=== PATIENT | male | born 1985 | race Caucasian/White ===

== ENCOUNTER 2016-07-28 12:56 | Outpatient (CLI) ==
[2016-05-09 17:54] VITALS: BMI 21.4
[2016-07-28 13:19] LABS: BASOPHILS % (AUTO) 0.6 % (0.0-3.0); EOSINOPHILS # (AUTO) 0.2 K/ul (0.0-0.7); EOSINOPHILS % (AUTO) 2.7 % (0.0-7.0); HEMATOCRIT 44.1 % (42.0-52.0); HEMOGLOBIN 14.9 g/dl (14.0-18.0); IMMATURE GRANULOCYTE % (AUTO) 0.7 % (0.0-5.0); LYMPHOCYTES # (AUTO) 1.7 K/uL (0.60-3.4); LYMPHOCYTES % (AUTO) 24.2 (10.0-50.0); MEAN CORPUSCULAR HEMOGLOBIN 30.6 pg (27.0-31.0); MEAN CORPUSCULAR HGB CONC 33.8 (31.8-35.4); MEAN CORPUSCULAR VOLUME 90.6 fl (80.0-94.0); MONOCYTES # (AUTO) 0.5 K/uL (0.4-2.0); MONOCYTES % (AUTO) 7.4 (0-10); NEUTROPHILS # (AUTO) 4.5 K/ul (2.0-6.9); NEUTROPHILS % (AUTO) 64.4; PLATELET COUNT 169 10^3/uL (140-440); RED BLOOD COUNT 4.87 10^6/ul (4.70-6.10); WHITE BLOOD COUNT 6.98 K/ul (4.2-10.2)
[2016-07-28 13:22] LABS: ALBUMIN 3.7 g/dL (3.4-5.0); ALBUMIN/GLOBULIN RATIO 1.12; ANION GAP 13.1; BILIRUBIN,TOTAL 0.26 mg/dL (0.00-1.20); BUN/CREATININE RATIO 10.84; CALCIUM 9.6 mg/dL (8.2-10.2); CHOL/HDL RATIO 7.3 (4.5-6.4); CREATININE 0.83 mg/dL (0.60-1.10); POTASSIUM 4.1 mmol/L (3.5-5.1)
== END 2016-07-28 12:57 | disposition home or self-care (01) ==
LOC: LAB 12:56
PROVIDERS: ATTEND Nurse Practitioner Family
DX: I49.3 Ventricular premature depolarization (principal); F41.9 Anxiety disorder, unspecified
CPT/HCPCS: 36415; 80053; 80061; 85025

== ENCOUNTER → 2016-08-17 | Outpatient (RCR) ==
[2016-05-09 17:54] VITALS: BMI 21.4
--- NOTE | 2016-08-09 13:56 | RS.CXNS ---
Date of scheduled appointment: 08/09/16 Type: No Show
--- NOTE | 2016-08-12 08:06 | RS.OPPTEV2 ---
Date of Note: 08/04/16 Visit #: 1 Date of Evaluation: 08/04/16 Date of Onset/Injury/Change in Status: 06/20/16 Surgery Performed?: No Treatment Diagnosis: Back pain History of Condition/Mechanism of Injury:: Patient hurt his back 5 yrs ago but has not had insurance until now. 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 He feels tight in his entire spine. He has been having constant pain for the past 6 months and feels out of place in his vertebra all the time. Prior Level of Function.....Patient was independent with: ADL's, Self Care, Work /Vocation, Caregiving, Ambulation/Mobility, Community Integration/Access Functional Limitations: Sleep, Reaching, Lifting, Carrying, Sitting, Standing, Bending, Squatting Current Subjective/complaints:: Moving is best. Standing in one spot poorly tolerated even for very few minutes. Medical History Medical History Comments:: Bulgding discs, major depressive disorder, anxiety, hypercholesterolemia, painic disorder and heart palpations. Smoking Status: Current every day smoker (Vape) Hx Home Medications: Zoloft, valium, coreg, mevacor and seroquel, Aleve Pain Assessment - Pain Description Pain Location: Lumbar spine and cervical Pain Description: Tightness, Throbbing, Aching Pain Description: Constant pain Current Pain Intensity: 4/10 Worst Pain Intensity: 10/10 Functional Outcome Measure Oswestry LBP: 21 - G Codes & Severity Modifier G Codes & Modifier: NA Source of G Code score: NA Gait - Gait Pattern General Gait Pattern Observation: No Deviations/Normal General Range of Motion: Muscle tightness throughout his trunk and BLEs. Muscle Strength: BLE strength 3/5 in quads and 4-/5 other grossly. - ROM Lumbar Flexion: Hand reach to Mid-Thighs Sidebending to Left: Reach to Mid-thigh Sidebending to Right: Reach to Mid-thigh Lumbar Spine ROM Limitations: Soft Tissue Tightness, Pain - Left Knee ROM Left Knee Extension: -25 degrees Knee ROM Limitations: Soft Tissue Tightness - Right Knee ROM Right Knee Extension: -35 degrees Knee ROM Limitations: Soft Tissue Tightness Palpation Palpation Findings: Tenderness (Muscle tightness and tenderness throughout the paraspinals from his neck thru his sacral region.) Sensation - Sensation Sensation Description: Numbness (If sitting for a period of time BLEs begin to go to sleep.) Interventions - Exercise/Activities/Manual Therapy Exercises/Activities: Alternating KTC, LTR and posterior pelvic tilts X 2 sets 5 reps. Pt had pain just lying in supine hooklying position. Bilateral hamstring tightness keeps pt from being able to extend his legs in comfort. Manual Therapy: NA HOME EXERCISE PROGRAM: Written HEP of KTC, LTR and post pelvic tilts - Charges Total Direct Minutes: 18 Total Treatment Time: 45 Procedures billed for this date of service:: PT Eval (medium) & ther ex Assessment Assessment: Pt has constant LBP with multiple muscle imbalance and tightness causing decreased ROM of trunk and BLEs. Muscle weaknesses present also. Patient Education: Education of diagnosis, Body/Joint mechanics, Home Exercise Program, Activity Modification, Education of Plan of Care Rehab Potential: Good Short Term Goals Goal #1: LBP intermittent. Goal to be met by: 08/27/16 Goal #2: Patient independent in stretch program. Goal to be met by: 08/27/16 Goal #3: Patient reports worst pain rating no > 7/10. Goal to be met by: 08/27/16 Jerker Goals Goal #1: Only minimal LBP with daily activities. Goal to be met by: 09/17/16 Goal #2: Bilateral hamstring length -10 Goal to be met by: 09/17/16 Goal #3: Unawakened by pain in the night. Goal to be met by: 09/17/16 Goal #4: Oswestry LBP score 14 Goal to be met by: 09/17/16 Plan - Treatment to be Provided Procedures: Therapeutic Exercises, Therapeutic Activity, Manual Therapy, Massage , Patient Education Modalities: Electrical Stimulation, Ultrasound/Phonophoresis, Class IV Laser, Cryotherapy, Hot Packs, Mechanical Traction - Treatment Plan Frequency: 3 X week Duration: 6 weeks ORDER # VISITS AND/OR THROUGH DATE: 09/17/2016 - Treatment Code (1) Back pain Qualifiers: Back pain location: low back pain Chronicity: chronic Back pain laterality: bilateral Sciatica presence: without sciatica Qualified Description: Chronic bilateral low back pain without sciatica Qualifier Code(s): (M54.5) Low back pain, (G89.29) Other chronic pain
--- NOTE | 2016-08-12 14:08 | RS.OPPTDN ---
Subjective Date of Note: 08/12/16 Visit #: 3 Date of Evaluation: 08/04/16 Treatment Diagnosis: Back pain Current Subjective/complaints:: Reports the back pain is also radiating into the hips currently,but not into the LE's. Pain Assessment - Pain Description Pain Location: Lumbar spine and cervical Pain Description: Tightness, Throbbing, Aching Pain Description: Constant pain Current Pain Intensity: 8/10 - Heat/Cryotherapy Treatment: Hot Pack (20 mins. prior to stretching exercises) Interventions - Exercise/Activities/Manual Therapy Exercises/Activities: 20 mins. SKTC,DKTC,hamstring stretches,LTR,all in short ROM today. Total minutes of Exercise: 20 Manual Therapy: NA Total minutes of Manual Therapy: 0 HOME EXERCISE PROGRAM: Written HEP of KTC, LTR and post pelvic tilts - Charges Total Direct Minutes: 20 Total Treatment Time: 40 Procedures billed for this date of service:: hp,ex 1 Assessment: Patient has poor tolerance to any attempted stretch or motion today, pain remains the same.Difficult to assess today due to the pain level and muscle guarding. Patient Education: Body/Joint mechanics, Home Exercise Program, Education of Plan of Care Short Term Goals Goal #1: LBP intermittent. Goal to be met by: 08/27/16 Progress towards Goal:: No Change Goal #2: Patient independent in stretch program. Goal to be met by: 08/27/16 Goal #3: Patient reports worst pain rating no > 7/10. Goal to be met by: 08/27/16 Surgeon Partner Goals Goal #1: Only minimal LBP with daily activities. Goal to be met by: 09/17/16 Goal #2: Bilateral hamstring length -10 Goal to be met by: 09/17/16 Goal #3: Unawakened by pain in the night. Goal to be met by: 09/17/16 Goal #4: Oswestry LBP score 14 Goal to be met by: 09/17/16 Plan PLAN OF CARE EXPIRES ON:: 09/17/16 ORDER # VISITS AND/OR THROUGH DATE: 09/17/2016 PLAN: Continue Plan of Care
--- NOTE | 2016-08-17 13:59 | RS.OPPTDN ---
Subjective Date of Note: 08/17/16 Visit #: 3 Date of Evaluation: 08/04/16 Treatment Diagnosis: Back pain Current Subjective/complaints:: Patient requests no moist heat prior to exercises today.He feels the heat causes him more pain. Pain Assessment - Pain Description Pain Location: Lumbar spine and cervical Pain Description: Tightness, Dull, Aching Pain Description: Constant pain Current Pain Intensity: 3/10 Interventions - Exercise/Activities/Manual Therapy Exercises/Activities: 35 mins. SKTC,DKTC,90/90 hamstring stretches with contract -relax,LTR,piriformis stretches.HEP review. Total minutes of Exercise: 35 Manual Therapy: NA Total minutes of Manual Therapy: 0 HOME EXERCISE PROGRAM: Written HEP of KTC, LTR and post pelvic tilts - Charges Total Direct Minutes: 35 Total Treatment Time: 35 Procedures billed for this date of service:: ex 2 Assessment: Patient has much better tolerance to exercises today.He has much improved hamstring extensibility today after contract-relax technique.He is attentive to recommendations for posture,low back care. Patient Education: Education of diagnosis, Body/Joint mechanics, Home Exercise Program, Home Safety, Activity Modification, Education of Plan of Care Patient demonstrates compliance with HEP?: Yes (Initiated today.) Short Term Goals Goal #1: LBP intermittent. Goal to be met by: 08/27/16 Progress towards Goal:: Progressing Goal #2: Patient independent in stretch program. Goal to be met by: 08/27/16 Progress towards Goal:: Progressing Goal #3: Patient reports worst pain rating no > 7/10. Goal to be met by: 08/27/16 Metalizer Goals Goal #1: Only minimal LBP with daily activities. Goal to be met by: 09/17/16 Goal #2: Bilateral hamstring length -10 Goal to be met by: 09/17/16 Goal #3: Unawakened by pain in the night. Goal to be met by: 09/17/16 Goal #4: Oswestry LBP score 14 Goal to be met by: 09/17/16 Plan PLAN OF CARE EXPIRES ON:: 09/17/16 ORDER # VISITS AND/OR THROUGH DATE: 09/17/2016 PLAN: Continue Plan of Care
== END ==
PROVIDERS: ATTEND Nurse Practitioner Family
DX: M51.36 Other intervertebral disc degeneration, lumbar region (principal); M51.26 Other intervertebral disc displacement, lumbar region; M54.9 Dorsalgia, unspecified

== ENCOUNTER 2016-08-19 13:34 | Outpatient (RCR) ==
[2016-07-28 13:03] VITALS: BMI 21.4
--- NOTE | 2016-08-19 14:03 | RS.OPPTDN ---
Subjective Date of Note: 08/19/16 Visit #: 4 Date of Evaluation: 08/04/16 Treatment Diagnosis: Back pain Current Subjective/complaints:: Reports feeling better,has been doing his HEP. Pain Assessment - Pain Description Pain Location: Lumbar spine and cervical Pain Description: Constant pain Current Pain Intensity: not rated Interventions - Exercise/Activities/Manual Therapy Exercises/Activities: 35 mins. SKTC,DKTC,90/90 hamstring stretches with contract -relax,LTR,piriformis stretches.HEP review.Added SI muscle energy exercises of resisted hip flexion,resisted knee extension in hooklying. Total minutes of Exercise: 35 Manual Therapy: NA Total minutes of Manual Therapy: 0 HOME EXERCISE PROGRAM: Written HEP of KTC, LTR and post pelvic tilts - Charges Total Direct Minutes: 35 Total Treatment Time: 55 Procedures billed for this date of service:: ex 2 Assessment: Progressing very well,continues to have improved extensibility, in bilateral hamstrings and lumbar ROM is les painful.He is compliant to HEP. Patient Education: Education of diagnosis, Body/Joint mechanics, Home Exercise Program, Home Safety, Activity Modification, Education of Plan of Care Patient demonstrates compliance with HEP?: Yes Short Term Goals Goal #1: LBP intermittent. Goal to be met by: 08/27/16 Progress towards Goal:: Progressing Goal #2: Patient independent in stretch program. Goal to be met by: 08/27/16 Progress towards Goal:: Progressing Goal #3: Patient reports worst pain rating no > 7/10. Goal to be met by: 08/27/16 Progress towards Goal:: Progressing Pit Manager Goals Goal #1: Only minimal LBP with daily activities. Goal to be met by: 09/17/16 Progress towards goal: Progressing Goal #2: Bilateral hamstring length -10 Goal to be met by: 09/17/16 Progress towards goal: Progressing Goal #3: Unawakened by pain in the night. Goal to be met by: 09/17/16 Goal #4: Oswestry LBP score 14 Goal to be met by: 09/17/16 Plan PLAN OF CARE EXPIRES ON:: 08/19/16 ORDER # VISITS AND/OR THROUGH DATE: 09/17/2016 PLAN: Continue Plan of Care
--- NOTE | 2016-08-24 13:16 | RS.CXNS ---
Date of scheduled appointment: 08/24/16 Type: No Show Reason for Cancel/NS: Unknown
--- NOTE | 2016-08-26 13:24 | RS.CXNS ---
Date of scheduled appointment: 08/26/16 Type: No Show Reason for Cancel/NS: Unknown
--- NOTE | 2016-09-07 15:54 | RS.QUICKDC ---
Discharge from PT Date of Discharge: 09/07/16 Number of Visits: 4 Reason for Discharge: No appts. kept after 3-17 visit.Patient was improving , progressing toward goals.
== END 2016-09-17 ==
PROVIDERS: ATTEND Nurse Practitioner Family
DX: M51.36 Other intervertebral disc degeneration, lumbar region (principal); M51.26 Other intervertebral disc displacement, lumbar region; M54.9 Dorsalgia, unspecified; G89.29 Other chronic pain

== ENCOUNTER 2016-10-13 12:16 | Outpatient (CLI) ==
[2016-07-28 13:03] VITALS: BMI 21.4
--- NOTE | 2016-10-13 16:27 | MRI ---
EXAM: MRI left knee without contrast. HISTORY: Pain left knee. Fall on knee 4 years ago. No recent injury. Swelling. Grinding. No le ft knee surgery.. TECHNIQUE: Using a local extremity coil on a high field strength magnet multiplanar multisequence M RI was performed of the left knee without intravenous or intra-articular gadolinium contrast.. FINDINGS: I do not have prior radiographs of the left knee available for comparison at the time of this dictation. Within the medial compartment the medial meniscus is intact without discrete surfacing meniscal tear . The medial compartment cartilage congruent without underlying subchondral edema. Within the lateral compartment lateral meniscus is intact without discrete surfacing meniscal tear. The lateral compartment cartilage congruent without underlying subchondral edema.. Within the patellofemoral compartment the patella seated with intact patellar attachments of the med ial and lateral patellar retinaculum. Both the patellar and trochlear groove cartilage congruent wi thout underlying subchondral edema. Small/moderate sized left knee effusion. No osteochondral loose bodies. Some question fibrosis/syno vitis over the anterior intercondylar notch. Intact anterior and posterior cruciate ligament fibers of normal orientation. The extensor mechanism is intact. The medial collateral ligament intact. Di stal semimembranosus tendinosis. There is some thickening and increased signal intensity to the fibu lar collateral ligament reflecting sprain. Posterolateral corner intact. Bone marrow signal intens ity shows no acute fracture, stress fracture or bone erosions. Artifact along the skin surface post erolaterally below the joint line. IMPRESSION: No discrete surfacing meniscal tear. Small/moderate size left knee effusion. Some question fibrosis/synovitis over the anterior intercond ylar notch. Intact cruciate ligaments. Sprain fibular collateral ligament. Intact MCL. Distal semimembranosus tendinosis. No acute fracture/stress fracture. Artifact along the skin surface posterolaterally below the joint line. Correlate for foreign body/p ostoperative change. Recommendation is obtainment and correlation with plain film radiographs of the left knee as none ar e available for comparison at the time of this dictation.
== END 2016-10-13 12:17 | disposition home or self-care (01) ==
LOC: RAD 12:16
PROVIDERS: ATTEND Nurse Practitioner Family
DX: M25.562 Pain in left knee (principal)

== ENCOUNTER 2016-10-31 14:17 | Emergency (ER) ==
[2016-10-31 14:26] VITALS: BP 132/82; TEMP 97.8; BMI 23.6
[2016-10-31] MEDS ORDERED: DECADRON 4 MG/ML SDV IM STA (14:30)
--- NOTE | 2016-10-31 14:33 | ED.PDOC ---
General ED Provider: Dr. YVES GUTIERREZ Chief Complaint: Sore Throat Stated Complaint: coughing, congetsed getting yellow sputum, sore throat. Time Seen by Physician: 14:31 Mode of Arrival: Walk-In Information Source: Patient Primary Care Provider: YVES GUTIERREZ-[facility] Nursing and Triage Documentation Reviewed and Agree: Yes Respiratory Complaint Exam - Respiratory Complaint/Exam Symptoms Are: Still present Timing: Constant Initial Severity: Mild Current Severity: Mild Location: Throat, Chest Character: Reports: Productive cough Aggravating: Reports: URI Alleviating: Reports: None Associated Signs and Symptoms: Reports: URI, Nasal congestion. Denies: Rapid breathing, Dyspnea, Fever, Chills, Chest pain, Pleuritic chest pain, Wheezing, Hemoptysis, Dizziness, Calf pain, Calf swelling, Edema, Hoarseness, Sinus discomfort, Vomiting, Sore throat, Weight loss, Decreased oral intake, Increased thirst, Increased appetite, Increased urination History of Healthcare-Acquired Pneumonia: No Related Surgical History: Reports: None Pulmonary Embolism Risk Factors: None Cardiac Risk Factors: Reports: None Pseudomonas Risk Factors: Reports: None Tuberculosis Risk Factors: Reports: None Status Asthmaticus Risk Factors: Reports: None Home Oxygen Use: No Recent Stress Test: No Current Antibiotic Use: No Current Asthma Medication Use: No Respiratory Distress: None Inadequate Respiratory Effort: No Dysphagia Present: No Differential Diagnoses: Pneumonia, Bronchitis Review of Systems - Review Of Systems Constitutional: Reports: Malaise, Weakness Eyes: Reports: No symptoms Ears, Nose, Mouth, Throat: Reports: No symptoms Respiratory: Reports: Cough Cardiac: Reports: No symptoms GI: Reports: No symptoms : Reports: No symptoms Musculoskeletal: Reports: No symptoms Skin: Reports: No symptoms Neurological: Reports: No symptoms Endocrine: Reports: No symptoms Hematologic/Lymphatic: Reports: No symptoms All Other Systems: Reviewed and Negative Past Medical History - Past Medical History Previously Healthy: Yes Endocrine: Reports: None Cardiovascular: Reports: Other (Palpitations) Respiratory: Reports: Asthma Hematological: Reports: None Gastrointestinal: Reports: None Genitourinary: Reports: None Neuro/Psych: Reports: Anxiety, Depression Musculoskeletal: Reports: None Cancer: Reports: None - Surgical History General Surgical History: Reports: None - Family History Family History: Reports: None - Social History Smoking Status: Current every day smoker, Heavy tobacco smoker, Light tobacco smoker Smoking Cessation Counseling Time: > 10 min Hx Substance Use: Yes ([facility]) Alcohol Screening: None - Immunizations Tetanus Shot up to Date: Yes Physical Exam - Physical Exam Appearance: Well-appearing, No pain distress, Well-nourished Eyes: BRINDA, EOMI, Conjunctiva clear ENT: Ears normal, Nose normal, Oropharynx normal Respiratory: Airway patent, Breath sounds clear, Breath sounds equal, Respirations nonlabored Cardiovascular: RRR, Pulses normal, No rub, No murmur GI/: Soft, Nontender, No masses, Bowel sounds normal, No Organomegaly Musculoskeletal: Normal strength, ROM intact, No edema, No calf tenderness Skin: Warm, Dry, Normal color Neurological: Sensation intact, Motor intact, Reflexes intact, Cranial nerves intact, Alert, Oriented Psychiatric: Affect appropriate, Mood appropriate Critical Care Note - Critical Care Note Total Time (mins): 0 Course - Course Orders, Labs, Meds: Orders Category Date Time Status Dexamethasone 4 mg/ml Inj [Decadron 4 mg/ml Sdv] MEDS 10/31/16 14:30 Stat 4 mg IM ONCE STA CXR [CHEST, 2 VIEWS PA & LAT] Stat RADS 10/31/16 14:30 Ordered Vital Signs: Temp Pulse Resp BP Pulse Ox 10/31/16 14:19 97.8 F 98 H 16 132/82 105 H Departure - Departure Time of Disposition: 14:34 Disposition: HOME SELF-CARE Discharge Problem: URTI (acute upper respiratory infection) Instructions: Upper Respiratory Infection (ED) Condition: Stable Pt referred to PMD for follow-up: Yes Additional Instructions: Increase hydration Tylenol prn Prescriptions: Amoxicillin/Potassium Clav [Augmentin 500-125 mg Tab] 1 tab PO Q12HR #20 tablet Prednisone 10 mg PO BIDWM #14 tablet Allergies/Adverse Reactions: Allergies No Known Allergies Allergy (Verified 10/31/16 14:25) Home Medications: Ambulatory Orders Sertraline HCl [Zoloft] 200 mg PO DAILY #2 10/13/15 Diazepam [Valium] 5 mg PO QID 11/08/15 Loratadine [Claritin] 10 mg PO DAILY 11/08/15 Ibuprofen 800 mg PO BID PRN 01/07/16 Lovastatin [Mevacor] 20 mg PO DAILY 01/26/16 Quetiapine Fumarate [Seroquel] 300 mg PO BEDTIME 08/17/16 Amoxicillin/Potassium Clav [Augmentin 500-125 mg Tab] 1 tab PO Q12HR #20 tablet 10/31/16 Prednisone 10 mg PO BIDWM #14 tablet 10/31/16 Disposition Discussed With: Patient
--- NOTE | 2016-11-01 07:36 | DI ---
EXAM: Chest two view, frontal and lateral views. HISTORY: Cough. COMPARISON: 05/09/2016. FINDINGS: The heart size is normal. There is no pulmonary vascular congestion. The lungs are venice r. No pleural effusion or pneumothorax is seen. No acute osseous abnormality identified. Since prior study, there has been no significant interval change. IMPRESSION: No acute cardiopulmonary process.
== END 2016-10-31 15:18 | disposition home or self-care (01) ==
LOC: ED 14:17
DX: J06.9 Acute upper respiratory infection, unspecified (principal); F17.210 Nicotine dependence, cigarettes, uncomplicated
CPT/HCPCS: 96372; 99282

== ENCOUNTER 2018-07-20 07:58 | Outpatient (CLI) | END 2018-07-20 07:59 | disposition home or self-care (01) | LOC: RHC-LAB 07:58 | PROVIDERS: ATTEND Nurse Practitioner Family | DX: Z00.00 Encounter for general adult medical examination without abnormal findings (principal); F41.9 Anxiety disorder, unspecified; I49.3 Ventricular premature depolarization; F41.0 Panic disorder [episodic paroxysmal anxiety]; E78.5 Hyperlipidemia, unspecified | CPT/HCPCS: 36415; 80053; 80061; 84443; 85025 ==